=== PATIENT | female | born 1955 | race Caucasian/White ===

== ENCOUNTER 2017-10-16 00:27 | Day surgery (SDC) | payer BC ==
[~2017-10-16] VITALS: Ht 161.3 cm; Wt 73.9 kg
[~2017-10-16 00:27] MED LIST: ATOR10TA24 PO; CEFU250T11 PO; CELE200C7 PO; CELE50CA2 PO; CHOL10005 PO; CIPR-245 PO; CIPR-344 PO; ESOM40CA42 PO; FAMO20TA28 PO; HYDR-385 PO; IBUP-1671 PO; IBUP600T22 PO; MULT1CAP59 PO; OMEP40CA48 PO; ONDA8TAB94 PO; OXYC-865 PO; PHEN200T32 PO; SITA1TBM7 PO; SITA25TA PO; SPIR100T31 PO; TAMS0.4C25 PO; TOLT4CAP13 PO; blood pressure med
[2017-10-16 06:25] VITALS: BP 135/79
[2017-10-16] MEDS ORDERED: GLYCOPYRROLATE 0.2 MG/ML INJ IVP ONE ×2 (06:40→07:10)
[2017-10-16] MEDS ORDERED: NORMOSOL R SOLN(*) 1000 ML BAG 1,000 ML IV PRN (06:45)
[2017-10-16] MEDS ORDERED: LIDOCAINE/SOD BICARB 8.4% SYR ID ONE (06:45)
--- NOTE | 2017-10-16 06:57 | Post Operative Progress Note ---
Post Operative Progress Note Date: October 16, 2017 Time: 07:46 Surgeon: laura Anesthesia: dr goldstein Pre-Op Diagnosis: barretts esophagus Post-Op Diagnosis: same, hiatal hernia and multiple small gastricd polyps Procedure(s): egd with biopsy and ploypectomy BRISA CONTRERAS MD October 16, 2017 06:57
--- NOTE | 2017-10-16 06:58 | Short(Outpt) Discharge Summary ---
Discharge Summary Reason for Hosp/Final Diag: (1) Barretts esophagus Hospital Course & Plan: egd with biopsy distal esophagus small hiatal hernia and multiple gastric polyps Departure Discharge to: Home Discharge Instructions Home Meds Reported Medications Multivitamin (MULTIVITAMINS) 1 Each Capsule, 1 EACH PO DAILY, CAPSULE 10/09/17 Cholecalciferol (Vitamin D3) (VITAMIN D3) 1,000 Unit Tablet, 1000 UNIT PO DAILY , TAB 10/09/17 Omeprazole (OMEPRAZOLE) 40 Mg Capsule.dr, 40 MG PO QDAY, CAP 10/09/17 Celecoxib (Celecoxib) 200 Mg Capsule, 1 CAP PO DAILY 10/09/17 Atorvastatin Calcium (LIPITOR) 10 Mg Tablet, 1 TAB PO QDAY, TAB 03/19/17 Sitagliptin Phos/Metformin Hcl (JANUMET XR 100-1,000 MG TABLET) 1 Each Tbmp.24hr , 100 EACH PO HS 10/04/13 Spironolactone (SPIRONOLACTONE) 100 Mg Tablet, 50 MG PO DAILY 10/04/13 Discontinued Reported Medications Celecoxib (CELEBREX) 50 Mg Capsule, PO BID, CAPSULE TAKE 1 CAPSULE BY MOUTH TWICE DAILY 09/20/13 Esomeprazole Magnesium (NEXIUM) 40 Mg Capsule.dr, 1 CAP PO QDAY TAKE ONE CAPSULE BY MOUTH EVERY DAY 09/20/13 Diet: Regular Activity: As Tolerated BRISA CONTRERAS MD October 16, 2017 06:58
[2017-10-16] MEDS ORDERED: GLYCOPYRROLATE 0.2MG/ML 1 ML INJ IVP ONE ×2 (07:10→07:15)
[2017-10-16] MEDS ORDERED: PROPOFOL EMUL(*) 10MG/ML 20 ML 40 ML ONE (07:18)
[2017-10-16] MEDS ORDERED: LIDOCAINE MPF 1% 5 ML VIAL ONE (07:18)
[2017-10-16 07:48] VITALS: BP 93/51
[2017-10-16] MEDS ORDERED: ONDANSETRON 4 MG/2 ML VIAL ONE (07:55)
[2017-10-16 08:15] VITALS: BP 113/73
[2017-10-16 08:31] VITALS: BP 123/80
[2017-10-16 08:32] VITALS: BP 125/82
--- NOTE | 2017-10-16 14:27 | OPERATIVE REPORT 1 ---
EVENT DATE: October 16, 2017 SURGEON: Claus Mckeon MD ANESTHESIOLOGIST: Jeremy Redd MD ANESTHESIA: Sedation. PREOPERATIVE DIAGNOSIS History of Gonazlez esophagus. POSTOPERATIVE DIAGNOSES 1. Hiatal hernia. 2. Multiple gastric polyps. PROCEDURE PERFORMED Esophagogastroduodenoscopy with biopsy of the distal esophagus and polypectomies. DESCRIPTION OF PROCEDURE The patient was placed in the left lateral decubitus position and given intravenous sedation. Flexible gastroscope was inserted. The GE junction was at 35 cm. There was no narrowing, no inflammation, no erosions. We went into the stomach which was empty, passed through the pylorus into the duodenum. The duodenum did not have a sharp curve, more of a malrotation. No abnormalities were noted in the duodenum. The pylorus was normal. Antrum was normal. Body of stomach appeared to be normal. Scope was retroflexed. There was a hiatal hernia. She had multiple small gastric polyps, all less than 1 cm, mostly in the 2 to 3 mm range. Three or four of these were removed with the cold cup. We then withdrew the scope. We biopsied the distal esophagus to evaluate for Gonzalez esophagus, and the procedure was terminated. The patient tolerated the procedure well. No apparent complication. [facility]
== END 2017-10-16 08:40 | disposition home or self-care (01) ==
LOC: OR 00:27
PROVIDERS: ATTEND Surgery
DX: K31.7 Polyp of stomach and duodenum (principal); K44.9 Diaphragmatic hernia without obstruction or gangrene; E11.9 Type 2 diabetes mellitus without complications
CPT/HCPCS: 36416; 43239; 82948; 88305; 88313; 88344; J2001; J2405; J2704; J3490